=== PATIENT | female | born 1980 | race American Indian/Alaskan Native ===

== ENCOUNTER 2018-04-05 08:02 | Emergency (ER) | payer SELFPAY ==
[2018-04-05] MEDS ORDERED: NACL 0.9% 1000 ML 1,000 ML IV ONE ×3 (08:22→12:07)
[2018-04-05 08:49] LABS: Basophils % (Auto) 0.3 % (0.0-1.8); Eosinophils % (Auto) 0.1 % (0.0-4.3); Hematocrit 39.3 % (30.3-42.9); Hemoglobin 12.8 gm/dl (10.1-14.3); Lymphocytes # (Auto) 1.3 K/mm3 (1.2-5.4); Lymphocytes % (Auto) 10.9 % (13.4-35.0); Mean Corpuscular HGB Conc 33 % (30-34); Mean Corpuscular Hemoglobin 30 pg (28-32); Mean Corpuscular Volume 93 fl (79-97); Monocytes # (Auto) 0.5 K/mm3 (0.0-0.8); Monocytes % (Auto) 4.1 % (0.0-7.3); Platelet Count 325 K/mm3 (140-440); Red Blood Count 4.23 M/mm3 (3.65-5.03); Red Cell Distribution Width 13.2 % (13.2-15.2)
[2018-04-05 08:59] LABS: Bilirubin,Urine NEG (Negative); Blood,Urine NEG (Negative); Color,Urine Yellow (Yellow); Mucus,Urine 3+ /HPF
[2018-04-05 09:12] LABS: Alanine Aminotransferase 10 units/L (7-56); Albumin 4.2 g/dL (3.9-5); BUN/Creatinine Ratio 19; Blood Urea Nitrogen 15 mg/dL (7-17); Calcium 9.4 mg/dL (8.4-10.2); Hemolysis Index 8; Lipase 14 units/L (13-60)
[2018-04-05] MEDS ORDERED: PEPCID IV ONE (10:36)
[2018-04-05] MEDS ORDERED: ZOFRAN IV ONE ×2 (10:36→12:05)
[2018-04-05] MEDS ORDERED: BENTYL IM ONE (10:36)
--- NOTE | 2018-04-05 10:37 | Emergency Department Report ---
Blank Doc - Documentation Documentation: Patient is a 37-year-old [place] female who has had nausea vomiting diarrhea since yesterday. Patient states she has mild crampy abdominal discomfort as well. Most of her discomfort is in the epigastrium. Patient states is no radiation of his pain. Patient denies any hematemesis or hematochezia. Patient denies any fevers or chills. She states she does not believe she ate anything that may have disagreed with her. On looking at the patient's laboratory studies she does have ketones in her urine consistent with some dehydration. Patient will be given 2 L of fluid as well as minutes for symptomatic relief patient be reassessed.
--- NOTE | 2018-04-05 11:56 | Emergency Department Report ---
ED Abdominal Pain HPI - General Chief Complaint: Abdominal Pain Stated Complaint: NAUSEA/VOMITING Time Seen by Provider: 04/05/18 10:23 Source: patient, family Mode of arrival: Ambulatory Limitations: No Limitations - History of Present Illness Initial Comments: Patient is a 37-year-old [place] female who has had nausea vomiting diarrhea since yesterday. Patient states she has as well. She reports epigastric abdominal pain at 9 out of 10 and crampy. Pain is intermittent. Pain is worse with vomiting. Patient states is no radiation of his pain. Patient denies any hematemesis or hematochezia. Patient denies any fevers or chills. Patient denies any urinary burning, frequency or urgency. Denies any vaginal bleeding or discharge. MD Complaint: abdominal pain, other (nausea and vomiting) -: Last night Location: RUQ, epigastric Radiation: none Migration to: no migration Severity: severe Severity scale (0 -10): 9 Quality: cramping, stabbing Consistency: constant Improves With: nothing Worsens With: vomiting Context: other (unknown) Associated Symptoms: nausea, vomiting, diarrhea Treatments Prior to Arrival: other (none) - Related Data LMP Date: 03/22/18 Previous Rx's Medication Instructions Recorded Last Taken Type Dicyclomine [Bentyl] 20 mg PO Q8H 3 Days #9 bottle 04/05/18 Unknown Rx Promethazine [Phenergan TAB] 25 mg PO Q6HR PRN #16 tab 04/05/18 Unknown Rx Allergies Allergy/AdvReac Type Severity Reaction Status Date / Time Penicillins Allergy Unknown Verified 04/05/18 08:19 ED Review of Systems ROS: Stated complaint: NAUSEA/VOMITING Other details as noted in HPI Constitutional: denies: chills, fever Eyes: denies: eye pain, eye discharge, vision change ENT: denies: ear pain, throat pain Respiratory: denies: cough, shortness of breath, SOB with exertion, wheezing Cardiovascular: denies: chest pain, palpitations Endocrine: no symptoms reported Gastrointestinal: abdominal pain, nausea, vomiting, diarrhea Genitourinary: denies: urgency, dysuria, frequency, hematuria, discharge, abnormal menses, dyspareunia Musculoskeletal: denies: back pain, joint swelling, arthralgia Skin: denies: rash, lesions Neurological: denies: headache, abnormal gait, vertigo ED Past Medical Hx - Past Medical History Previous Medical History?: Yes Additional medical history: hole in heart - Surgical History Past Surgical History?: No - Family History Family history: no significant - Social History Smoking Status: Current Every Day Smoker Substance Use Type: Marijuana - Medications Home Medications: Home Medications Medication Instructions Recorded Confirmed Last Taken Type Dicyclomine [Bentyl] 20 mg PO Q8H 3 Days #9 bottle 04/05/18 Unknown Rx Promethazine [Phenergan TAB] 25 mg PO Q6HR PRN #16 tab 04/05/18 Unknown Rx ED Physical Exam - General Limitations: No Limitations General appearance: alert, in no apparent distress - Head Head exam: Present: atraumatic, normocephalic, normal inspection - Eye Eye exam: Present: normal appearance, PERRL, EOMI Pupils: Present: normal accommodation - ENT ENT exam: Present: normal orophraynx, mucous membranes dry, TM's normal bilaterally, normal external ear exam - Neck Neck exam: Present: normal inspection, full ROM. Absent: tenderness, lymphadenopathy - Respiratory Respiratory exam: Present: normal lung sounds bilaterally. Absent: respiratory distress, chest wall tenderness - Cardiovascular Cardiovascular Exam: Present: regular rate, normal rhythm, normal heart sounds - GI/Abdominal GI/Abdominal exam: Present: soft, tenderness (right upper quadrant to epigastric area), guarding, normal bowel sounds. Absent: distended, rebound, rigid, organomegaly, mass, hernia - Extremities Exam Extremities exam: Present: normal inspection, full ROM, normal capillary refill , calf tenderness. Absent: tenderness, pedal edema - Back Exam Back exam: Present: normal inspection, full ROM, other (ambulates without any difficulties). Absent: tenderness, CVA tenderness (L), muscle spasm, paraspinal tenderness, vertebral tenderness, rash noted - Neurological Exam Neurological exam: Present: alert, oriented X3, normal gait - Psychiatric Psychiatric exam: Present: normal affect, normal mood - Skin Skin exam: Present: warm, dry, intact, normal color. Absent: rash ED Course Vital Signs 04/05/18 04/05/18 04/05/18 08:19 12:21 13:39 Temperature 98.4 F 98.8 F Pulse Rate 61 46 L Respiratory 18 15 18 Rate Blood Pressure 135/86 157/76 O2 Sat by Pulse 97 100 Oximetry - Reevaluation(s) Reevaluation #1: 04/05/18 11:31 She and received Pepcid 20 mg IV, Zofran 4 mg IV and normal saline IV bolus. Her symptoms are not completely relief. She still has some minor epigastric tenderness with some nausea but no vomiting or diarrhea. Reevaluation #2: 04/05/18 13:32 Patient received additional normal saline IV bolus, Zofran 4 mg IV, Maalox 30 mg by mouth and lidocaine 15 mL by mouth and she voiced relief of her abdominal pain she has no abdominal tenderness and her nausea and vomited and has been relieved and she is able to tolerate by mouth liquids any distress. Patient's that she is feeling better ED Medical Decision Making - Lab Data Result diagrams: 04/05/18 08:30 04/05/18 08:30 Lab Results 04/05/18 04/05/18 04/05/18 Range/Units 08:30 08:30 08:30 WBC 12.2 H (4.5-11.0) K/mm3 RBC 4.23 (3.65-5.03) M/mm3 Hgb 12.8 (10.1-14.3) gm/dl Hct 39.3 (30.3-42.9) % MCV 93 (79-97) fl MCH 30 (28-32) pg MCHC 33 (30-34) % RDW 13.2 (13.2-15.2) % Plt Count 325 (140-440) K/mm3 Lymph % (Auto) 10.9 L (13.4-35.0) % Moore % (Auto) 4.1 (0.0-7.3) % Eos % (Auto) 0.1 (0.0-4.3) % Baso % (Auto) 0.3 (0.0-1.8) % Lymph # 1.3 (1.2-5.4) K/mm3 Moore # 0.5 (0.0-0.8) K/mm3 Eos # 0.0 (0.0-0.4) K/mm3 Baso # 0.0 (0.0-0.1) K/mm3 Seg Neutrophils % 84.6 H (40.0-70.0) % Seg Neutrophils # 10.4 H (1.8-7.7) K/mm3 Sodium 139 (137-145) mmol/L Potassium 3.6 (3.6-5.0) mmol/L Chloride 103.5 (98-107) mmol/L Carbon Dioxide 22 (22-30) mmol/L Anion Gap 17 mmol/L BUN 15 (7-17) mg/dL Creatinine 0.8 (0.7-1.2) mg/dL Estimated GFR > 60 ml/min BUN/Creatinine Ratio 19 % Glucose 139 H (65-100) mg/dL Calcium 9.4 (8.4-10.2) mg/dL Total Bilirubin 0.40 (0.1-1.2) mg/dL AST 17 (5-40) units/L ALT 10 (7-56) units/L Alkaline Phosphatase 45 (35-129) units/L Total Protein 7.1 (6.3-8.2) g/dL Albumin 4.2 (3.9-5) g/dL Albumin/Globulin Ratio 1.4 % Lipase 14 (13-60) units/L HCG, Qual Negative (Negative) Urine Color (Yellow) Urine Turbidity (Clear) Urine pH (5.0-7.0) Ur Specific [place] (1.003-1.030) Urine Protein (Negative) mg/dL Urine Glucose (UA) (Negative) mg/dL Urine Ketones (Negative) mg/dL Urine Blood (Negative) Urine Nitrite (Negative) Urine Bilirubin (Negative) Urine Urobilinogen (<2.0) mg/dL Ur Leukocyte Esterase (Negative) Urine WBC (Auto) (0.0-6.0) /HPF Urine RBC (Auto) (0.0-6.0) /HPF U Epithel Cells (Auto) (0-13.0) /HPF Urine Mucus /HPF 18/18 Range/Units 08:34 WBC (4.5-11.0) K/mm3 RBC (3.65-5.03) M/mm3 Hgb (10.1-14.3) gm/dl Hct (30.3-42.9) % MCV (79-97) fl MCH (28-32) pg MCHC (30-34) % RDW (13.2-15.2) % Plt Count (140-440) K/mm3 Lymph % (Auto) (13.4-35.0) % Moore % (Auto) (0.0-7.3) % Eos % (Auto) (0.0-4.3) % Baso % (Auto) (0.0-1.8) % Lymph # (1.2-5.4) K/mm3 Moore # (0.0-0.8) K/mm3 Eos # (0.0-0.4) K/mm3 Baso # (0.0-0.1) K/mm3 Seg Neutrophils % (40.0-70.0) % Seg Neutrophils # (1.8-7.7) K/mm3 Sodium (137-145) mmol/L Potassium (3.6-5.0) mmol/L Chloride (98-107) mmol/L Carbon Dioxide (22-30) mmol/L Anion Gap mmol/L BUN (7-17) mg/dL Creatinine (0.7-1.2) mg/dL Estimated GFR ml/min BUN/Creatinine Ratio % Glucose (65-100) mg/dL Calcium (8.4-10.2) mg/dL Total Bilirubin (0.1-1.2) mg/dL AST (5-40) units/L ALT (7-56) units/L Alkaline Phosphatase (35-129) units/L Total Protein (6.3-8.2) g/dL Albumin (3.9-5) g/dL Albumin/Globulin Ratio % Lipase (13-60) units/L HCG, Qual (Negative) Urine Color Yellow (Yellow) Urine Turbidity Slightly-cloudy (Clear) Urine pH 5.0 (5.0-7.0) Ur Specific [place] 1.034 H (1.003-1.030) Urine Protein 100 mg/dl (Negative) mg/dL Urine Glucose (UA) 50 (Negative) mg/dL Urine Ketones 80 (Negative) mg/dL Urine Blood Neg (Negative) Urine Nitrite Neg (Negative) Urine Bilirubin Neg (Negative) Urine Urobilinogen 2.0 (<2.0) mg/dL Ur Leukocyte Esterase Neg (Negative) Urine WBC (Auto) 4.0 (0.0-6.0) /HPF Urine RBC (Auto) 4.0 (0.0-6.0) /HPF U Epithel Cells (Auto) 6.0 (0-13.0) /HPF Urine Mucus 3+ /HPF - Radiology Data Radiology results: report reviewed Ultrasound right upper quadrant dictated by radiologist and peripheral limits. Please see report. Patient: LILLY KEY MR#: [id number] : 1980 Acct:[id number] Age/Sex: 37 / F ADM Date: 04/05/18 Loc: ED Attending Dr: Ordering Physician: RAJENDRA BROCK Date of Service: 04/05/18 Procedure(s): US abdomen limited Accession Number(s): [id number] cc: RAJENDRA BROCK ULTRASOUND ABDOMEN LIMITED: TECHNIQUE: Transabdominal ultrasound with color Doppler interrogation. HISTORY: Upper abdominal pain. Nausea, vomiting and diarrhea. COMPARISON: none. FINDINGS: LIVER: Normal. BILIARY SYSTEM: The gallbladder is partially contracted. There is no evidence for gallstones or sludge. No pericholecystic fluid. The gallbladder wall appears moderately thickened measuring 6-8 mm in thickness. The CBD measures 3 mm. PANCREAS: Normal. RIGHT KIDNEY: Normal. PROXIMAL AORTA: Normal. ASCITES: None. IMPRESSION: There is moderate thickening of the gallbladder wall however there is no evidence for gallstones, sludge or abnormal distention. The significance of this is unclear. Transcribed By: TTR Dictated By: ENEIDA SIMPSON JR, MD Electronically Authenticated By: ENEIDA SIMPSON JR, MD Signed Date/Time: 04/05/18 1341 DD/ 1340 TD/TT: 04/05/18 1341 - Medical Decision Making This is a 37-year-old female reports that she has been having nausea vomiting and diarrhea since last night. She is here to be evaluated Diagnostics: Ultrasound abdomen limited reveals .There is moderate thickening of the gallbladder wall however there is no evidence for gallstones, sludge or abnormal distention. The significance of this is unclear. See radiology section for details on reported Labs: CBC, CMP and UA stable except for some minor abnormalities. Lipase negative and test is negative. Please refer to laboratory section for details Assessment/plan Nausea vomiting and diarrhea-resolved with antinausea medication. Urine with 80 ketones and she received 2 L normal saline Abdominal pain-ultrasound unremarkable. Pain has resolved with pain medication. Dehydration-patient able to tolerate water and emergency room. She was encouraged to increase her fluid intake Patient educated on diagnosis and laboratory results include ultrasound results. She was understanding and she is follow-up with global supply chain director. Patient discharged home in stable condition. Vital signs she is afebrile. Pain and nausea vomiting diarrhea has resolved. Discharge prescription for Phenergan and Bentyl. - Differential Diagnosis GBD,Gallstones,liver disease, colitis,pancreatitis, enteritis,uti Critical care attestation.: If time is entered above; I have spent that time in minutes in the direct care of this critically ill patient, excluding procedure time. ED Disposition Clinical Impression: Nausea vomiting and diarrhea, Gall bladder disease Abdominal pain Qualifiers: Abdominal location: upper abdomen, unspecified Qualified Code(s): R10.10 - Upper abdominal pain, unspecified Disposition: TO HOME OR SELFCARE Is pt being admited?: No Does the pt Need Aspirin: No Condition: Stable Instructions: Biliary Colic (ED), Acute Nausea and Vomiting (ED), Acute Diarrhea (ED), Abdominal Pain (ED), Nutrition Tips for Relief of Diarrhea (ED) Additional Instructions: Please follow up with global supply chain director as discussed. Follow-up in one to 2 days Bentyl for stomach pain and Phenergan for nausea Symptoms worsen, return to emergency room Prescriptions: Dicyclomine [Bentyl] 20 mg PO Q8H 3 Days #9 bottle Promethazine [Phenergan TAB] 25 mg PO Q6HR PRN #16 tab PRN Reason: Nausea Referrals: [facility] [Provider Group] - 04/06/18 PRIMARY CARE, [Primary Care Provider] - 04/06/18 [facility] [Outside] - 04/06/18 Forms: Accompanied Note, Work/School Release Form(ED)
[2018-04-05] MEDS ORDERED: REGLAN ONE (12:04)
[2018-04-05] MEDS ORDERED: LIDOCAINE VISCOUS 2% PO ONE (12:05)
[2018-04-05] MEDS ORDERED: REGLAN IV PRN (12:05)
[2018-04-05] MEDS ORDERED: ALUM-MAG HYDROX-SIMETH 200-200-20MG/5ML PO ONE (12:05)
[2018-04-05] MEDS ORDERED: BENTYL PO ONE (12:05)
[2018-04-05 13:43] VITALS: BP 157/76
--- NOTE | 2018-04-05 13:43 | Ultrasound Report ---
ULTRASOUND ABDOMEN LIMITED: TECHNIQUE: Transabdominal ultrasound with color Doppler interrogation. HISTORY: Upper abdominal pain. Nausea, vomiting and diarrhea. COMPARISON: none. FINDINGS: LIVER: Normal. BILIARY SYSTEM: The gallbladder is partially contracted. There is no evidence for gallstones or sludge. No pericholecystic fluid. The gallbladder wall appears moderately thickened measuring 6-8 mm in thickness. The CBD measures 3 mm. PANCREAS: Normal. RIGHT KIDNEY: Normal. PROXIMAL AORTA: Normal. ASCITES: None. IMPRESSION: There is moderate thickening of the gallbladder wall however there is no evidence for gallstones, sludge or abnormal distention. The significance of this is unclear.
== END 2018-04-05 14:32 | disposition home or self-care (01) ==
LOC: ED 08:02
DX: K82.9 Disease of gallbladder, unspecified (principal); F17.200 Nicotine dependence, unspecified, uncomplicated; F12.10 Cannabis abuse, uncomplicated
CPT/HCPCS: 36415; 76705; 80053; 81001; 83690; 84703; 85025; 96361; 96372; 96374; 96375; 96376; 99284; J0500; J2405; J2765; J7030